=== PATIENT | male | born 1955 | race Caucasian/White ===

== ENCOUNTER → 2017-09-27 | Outpatient (CLI) | payer BC ==
[2017-09-27 11:33] LABS: ABG BASE EXCESS 3.1 MMOL/L (-2.5-2.5); ABG OXYGEN SATURATION 96 % (94-100); ABG PCO2 40 MMHG (35-45); ABG PH 7.44 (7.37-7.43); ABG PO2 72 MMHG (79-93); ABG TCO2 28.4 MMOL/L (21.0-31.0); ALLENS TEST YES-POS; INSPIRED O2 3 L; PATIENT TEMP 97.7; VENTILATOR NO
== END ==
LOC: RT 10:58
PROVIDERS: ATTEND Nurse Practitioner Family
DX: J44.9 Chronic obstructive pulmonary disease, unspecified (principal); R06.09 Other forms of dyspnea
CPT/HCPCS: 36600; 82805

== ENCOUNTER → 2017-10-12 | Outpatient (CLI) | payer BC ==
[~2017-10-12] MED LIST: IOHEXOL 350 MG/ML 100 ML (OMNIPAQUE 350) VIAL IV ONE; NS 250 ML (IVPB) BAG IV ONE; RT-ALBUTEROL SULF 2.5 MG/3 ML PRE-MIX VIAL INH ONE
[2017-10-12 11:41] LABS: BUN/CREATININE RATIO 8; CREATININE SERUM 0.88 MG/DL (0.60-1.30); GFR ESTIMATED > 60
--- NOTE | 2017-10-12 12:26 | Diagnostic Imaging Report ---
PROCEDURE: CT chest with contrast only. TECHNIQUE: Multiple contiguous axial images were obtained through the chest after administration of intravenous contrast. INDICATION: Pneumonia. No prior studies are available for comparison. Changes of median sternotomy are identified. No axillary lymphadenopathy is identified. No definite hilar or mediastinal lymphadenopathy is detected. No pericardial or pleural fluid is detected. Central airways are patent. Parenchymal evaluation does show severe emphysematous changes throughout both lungs. No infiltrate, nodule or mass is identified. The upper abdomen is unremarkable. IMPRESSION: Severe emphysematous changes. No acute feature is detected. Dictated by: Dictated on workstation # [id number]
== END ==
LOC: EDUNIT# 09-27 10:45 → RAD 10:59
PROVIDERS: ATTEND Nurse Practitioner Family
DX: J43.9 Emphysema, unspecified (principal); J18.9 Pneumonia, unspecified organism; Z87.891 Personal history of nicotine dependence
CPT/HCPCS: 36415; 71260; 82565; 84520; 94060; 94726; 94729

== ENCOUNTER 2017-11-15 19:53 | Outpatient (CLI) | payer BC | END 2017-11-16 06:30 | disposition home or self-care (01) | LOC: SLEEP 19:53 | PROVIDERS: ATTEND Nurse Practitioner Family | DX: G47.50 Parasomnia, unspecified (principal) | CPT/HCPCS: 95810 ==

== ENCOUNTER 2018-01-11 19:39 | Outpatient (CLI) | payer BC | END 2018-01-12 05:55 | disposition home or self-care (01) | LOC: SLEEP 19:39 | PROVIDERS: ATTEND Nurse Practitioner Family | DX: G47.33 Obstructive sleep apnea (adult) (pediatric) (principal); J43.9 Emphysema, unspecified; R09.02 Hypoxemia; G47.50 Parasomnia, unspecified; Z87.891 Personal history of nicotine dependence; R06.09 Other forms of dyspnea; Z95.1 Presence of aortocoronary bypass graft | CPT/HCPCS: 95811 ==

== ENCOUNTER → 2019-01-13 | Outpatient (CLI) | payer BC ==
[~2019-01-13] MED LIST changes: +HOLD METFORMIN - RECEIVED CONTRAST 20 ML VIAL IV SCH; +NS 100 ML (IVPB) BAG IV ONE; -NS 250 ML (IVPB) BAG IV ONE
[2019-01-13 11:10] LABS: BUN/CREATININE RATIO 12; CREATININE SERUM 0.99 MG/DL (0.60-1.30); GFR ESTIMATED > 60
--- NOTE | 2019-01-13 13:17 | Diagnostic Imaging Report ---
PROCEDURE: CT chest with contrast only. TECHNIQUE: Multiple contiguous axial images were obtained through the chest after administration of intravenous contrast. Auto Exposure Controls were utilized during the CT exam to meet ALARA standards for radiation dose reduction. DATE: January 13, 2019. COMPARISON: CT chest of October 12, 2017. INDICATION: 63-year-old male, dyspnea on exertion. Shortness of breath. History of chronic obstructive pulmonary disease. FINDINGS: There are prominent findings of emphysema. There is a 4 mm pleurally based right middle lobe pulmonary nodule on axial image 90 which appears grossly unchanged since October 12, 2017 accounting for differences in slice thickness and positioning. There is no identified clearly new or enlarging pulmonary nodule. There is very mild atelectasis in the right middle lobe, right lower lobe, and left lower lobe. There is no additional focal airspace consolidation. There is no pneumothorax. There is no pleural effusion. The central airways are patent. There is no identified pulmonary embolus. The main pulmonary artery is normal in caliber. There are coronary artery calcifications and additional areas of atherosclerotic disease. There is no pericardial effusion. There is no identified abnormally enlarged mediastinal, hilar, or axillary lymph node which meets CT size criteria for adenopathy. There is a potential gallstone on axial image 152. There is no evidence of acute cholecystitis. There is no biliary ductal dilation. The pancreatic parenchyma is unremarkable in appearance. There are sutures at the level of the transverse colon. Additional evaluation of the imaged portions of the upper abdomen is unremarkable. There are median sternotomy wires. There is no identified acute bony abnormality. There are degenerative changes of the spine. IMPRESSION: 1. Prominent findings of emphysema without identified acute cardiopulmonary abnormality. 2. There is a 4 mm pleurally based right middle lobe pulmonary nodule which is grossly unchanged since October 12, 2017 given differences in slice selection and positioning. 3. Potential gallstone without evidence of acute cholecystitis or biliary ductal dilation. Dictated by: Dictated on workstation # [id number]
== END ==
LOC: RT 10:32
PROVIDERS: ATTEND Nurse Practitioner Family
DX: J43.9 Emphysema, unspecified (principal); K80.20 Calculus of gallbladder without cholecystitis without obstruction; R91.1 Solitary pulmonary nodule; G47.33 Obstructive sleep apnea (adult) (pediatric); G47.50 Parasomnia, unspecified; Z87.891 Personal history of nicotine dependence; Z98.890 Other specified postprocedural states
CPT/HCPCS: 36415; 71260; 82565; 84520; 94060; 94726; 94729

== ENCOUNTER → 2019-12-30 | Outpatient (CLI) | payer BC ==
[~2019-12-30] MED LIST changes: +CATHETER FLUSH 10 ML SYR IV PRN; -RT-ALBUTEROL SULF 2.5 MG/3 ML PRE-MIX VIAL INH ONE
[2019-12-30 09:17] LABS: BUN/CREATININE RATIO 12; CREATININE SERUM 1.04 MG/DL (0.60-1.30); GFR ESTIMATED > 60
--- NOTE | 2019-12-30 10:45 | Diagnostic Imaging Report ---
PROCEDURE: CT chest with contrast only. TECHNIQUE: Multiple contiguous axial images were obtained through the chest after administration of intravenous contrast. Auto Exposure Controls were utilized during the CT exam to meet ALARA standards for radiation dose reduction. DATE: December 30, 2019. COMPARISON: CT chest January 13, 2019. October 12, 2017. INDICATION: 64-year-old male, followup pulmonary nodule. Shortness of breath. History of chronic obstructive pulmonary disease. FINDINGS: There is a 4 mm pleurally based right middle lobe pulmonary nodule on axial image 92. This is unchanged since October 12, 2017, consistent with benign etiology. There is no additional identified pulmonary nodule. There are upper lobe predominant findings of emphysema. There are very mild linear opacities in the right lower lobe, right middle lobe, and left upper lobe, likely relating to mild scarring and/or atelectasis. There is no additional focal airspace consolidation. There is no pneumothorax. There is no pleural effusion. The central airways are patent. There is no identified pulmonary embolus. The main pulmonary artery is normal in caliber. The heart is not enlarged. There is no pericardial effusion. There is no identified abnormally enlarged mediastinal, hilar, or axillary lymph node which meets CT size criteria for adenopathy. There is diffuse fatty infiltration of the liver. There is focal fatty sparing adjacent to the gallbladder fossa. There is a 4 mm low-attenuation lesion in the right lobe of the liver on axial image 134 which is too small to characterize. This is stable since at least September 2017, compatible with a benign etiology. Additional evaluation of the imaged portions of the abdomen is unremarkable. There are atherosclerotic calcifications. There are median sternotomy wires. There is no identified acute bony abnormality. There are degenerative changes of the spine. IMPRESSION: 1. There is a 4 mm pleurally based right middle lobe pulmonary nodule, stable since at least September 2017, consistent with benign etiology. No further followup is needed. 2. Upper lobe predominant findings of emphysema. 3. No identified acute cardiopulmonary abnormality. 4. Diffuse fatty infiltration of the liver with focal fatty sparing adjacent to the gallbladder fossa. Dictated by: Dictated on workstation # [id number]
== END ==
LOC: RAD 08:45
PROVIDERS: ATTEND Nurse Practitioner Family
DX: J43.9 Emphysema, unspecified (principal); K76.0 Fatty (change of) liver, not elsewhere classified; R91.1 Solitary pulmonary nodule; G47.50 Parasomnia, unspecified; G47.33 Obstructive sleep apnea (adult) (pediatric); Z87.891 Personal history of nicotine dependence
CPT/HCPCS: 36415; 71260; 82565; 84520

== ENCOUNTER → 2021-01-26 | Outpatient (CLI) | payer BC ==
[2021-01-26 11:38] LABS: CREATININE SERUM 1.1 MG/DL (0.60-1.30)
--- NOTE | 2021-01-26 13:39 | Diagnostic Imaging Report ---
PROCEDURE: CT angiography of the chest with contrast. TECHNIQUE: Multiple contiguous axial images were obtained through the chest after uneventful bolus administration of intravenous contrast. 3D reconstructed CTA MIP acquisitions were also performed. Auto Exposure Controls were utilized during the CT exam to meet ALARA standards for radiation dose reduction. INDICATION: Pulmonary embolism. COMPARISON: CT chest from 12/30/2019. FINDINGS: Evaluation of the pulmonary arterial system is without evidence of thromboembolism. No filling defects are seen within central, lobar, or segmental branches. The thoracic aorta is of normal caliber. There is no dissection. There are changes of median sternotomy. No pericardial or pleural fluid is identified. There are severe emphysematous changes noted throughout both lungs. There is a 4 mm nodule in the right upper lobe, stable. A 4 to 5 mm nodule in the right middle lobe is stable. No new masses are detected. The upper abdomen is unremarkable. IMPRESSION: 1. No evidence of pulmonary embolism or thoracic aortic dissection. 2. Severe emphysematous changes. The overall appearance is stable when compared with the prior examination from 12/30/2019. Dictated by: Dictated on workstation # [id number]
--- NOTE | 2021-01-26 14:18 | Diagnostic Imaging Report ---
PROCEDURE: US Venous Lower Ext Teddy. TECHNIQUE: Multiple real-time grayscale images were obtained over the lower extremities in various projections, bilaterally. Additional duplex Doppler and color Doppler images were also obtained. INDICATION: Lower extremity swelling and pain. COMPARISON: None. FINDINGS: Visualized deep and superficial venous system is patent. There is no DVT. IMPRESSION: Negative lower extremity venous Doppler. Dictated by: Dictated on workstation # [id number]
== END ==
LOC: RAD 13:15
PROVIDERS: ATTEND Nurse Practitioner Family
DX: Z03.89 Encounter for observation for other suspected diseases and conditions ruled out (principal); J43.9 Emphysema, unspecified; M79.609 Pain in unspecified limb; M79.89 Other specified soft tissue disorders
CPT/HCPCS: 36415; 71275; 82565; 84520; 93970

== ENCOUNTER → 2021-03-08 | Outpatient (CLI) | payer BC ==
[~2021-03-08] MED LIST changes: -CATHETER FLUSH 10 ML SYR IV PRN; -HOLD METFORMIN - RECEIVED CONTRAST 20 ML VIAL IV SCH; -IOHEXOL 350 MG/ML 100 ML (OMNIPAQUE 350) VIAL IV ONE; -NS 100 ML (IVPB) BAG IV ONE; +RT-ALBUTEROL SULF 2.5 MG/3 ML PRE-MIX VIAL INH ONE
== END ==
LOC: RT 11:00
PROVIDERS: ATTEND Nurse Practitioner Family
DX: J44.9 Chronic obstructive pulmonary disease, unspecified (principal)
CPT/HCPCS: 94060; 94726; 94729